=== PATIENT | female | born 1940 | race Caucasian/White ===

== ENCOUNTER 2022-10-11 14:31 | Emergency (ER) | payer MEDICARE, BC ==
[~2022-10-11] VITALS: Ht 172.7 cm; Wt 75.0 kg
[2022-10-11] MEDS ORDERED: acetaminophen 325mg tablet PO ONE (17:20)
[2022-10-11 19:01] VITALS: BP 142/84
== END 2022-10-11 19:06 | disposition home or self-care (01) ==
LOC: ER 14:32
DX: Z04.1 Encounter for examination and observation following transport accident (principal); I10 Essential (primary) hypertension; W19.XXXA Unspecified fall, initial encounter; Y93.89 Activity, other specified; Y92.89 Other specified places as the place of occurrence of the external cause; Y99.8 Other external cause status
CPT/HCPCS: 70450; 70486; 72125; 99284; L0172; A6449